=== PATIENT | female | born 1950 | race Caucasian/White ===

== ENCOUNTER 2016-12-22 09:43 | Emergency (ER) | payer MEDICARE, OTHER ==
[~2016-12-22] VITALS: Ht 160 cm; Wt 75.0 kg
[2016-12-22 09:47] VITALS: BP 147/79; PULSE 83; RESP 18; TEMP 97.8; O2SAT 96
[2016-12-22] MEDS ORDERED: PANT20 PO (10:05)
[2016-12-22] MEDS ORDERED: ZYRT10CA PO (10:05)
[2016-12-22] MEDS ORDERED: ASPI81TA11 PO (10:05)
[2016-12-22] MEDS ORDERED: CENTTAB8 PO (10:05)
--- NOTE | 2016-12-22 10:20 | PD ---
HPI Chief Complaint: Head Injury Time Seen by Provider: 10:03 Travel History International Travel<30 days: No Contact w/Intl Traveler<30days: No Traveled to known affect area: No History of Present Illness HPI Patient is a 66 year old female who presents to ER after fall today. Patient reports that she was playing pickleball today and reports that she zaida to hit a ball and tripped and fell backwards. Reports that her buttochs landed on cement and then her head landed on the cement floor. Denies any LOC. Denies vision changes. Denies n/v. Reports that she noticed that the back of her head appeared swollen and she became concerned. She does take a baby ASA daily - does not take any other anticoagulants. Denies pain to the back of her neck. Denies back pain. Denies chest pain/abdominal pain. No other c/o. PFSH Past Medical History Diminished Hearing: No ?: Not LMP: [place] Past Surgical History Mastectomy: Yes (LEFT) Social History Alcohol Use: Yes (1 GLASS OF WINE) Tobacco Use: No Substance Use: No Allergies-Medications (Allergen,Severity, Reaction): Coded Allergies: No Known Allergies (Unverified , 12/22/16) Reported Meds & Prescriptions Reported Meds & Active Scripts Active Reported Aspirin EC (Aspirin) 81 Mg Tabdr 81 Mg PO DAILY Centrum Adults (Multiple Vitamins W/ Minerals) 1 Tab 1 Tab PO DAILY Protonix (Pantoprazole Sodium) 20 Mg Tab 20 Mg PO DAILY Zyrtec Allergy (Cetirizine HCl) 10 Mg Cap 10 Mg PO DAILY Review of Systems General / Constitutional: No: Fever Eyes: No: Visual changes HENT: Positive: Headaches (pain and swelling to the back of head.) Cardiovascular: No: Chest Pain or Discomfort Respiratory: No: Shortness of Breath Gastrointestinal: No: Abdominal Pain Genitourinary: No: Dysuria Musculoskeletal: No: Pain Skin: No Rash Neurologic: No: Weakness Psychiatric: No: Depression Endocrine: No: Polydipsia Hematologic/Lymphatic: No: Easy Bruising Physical Exam Narrative GENERAL: No acute distress, nontoxic SKIN: Focused skin assessment warm/dry. HEAD: Atraumatic. Normocephalic. Patient with hematoma to the posterior occiput EYES: Pupils equal and round. No scleral icterus. No injection or drainage. ENT: No nasal bleeding or discharge. Mucous membranes pink and moist. NECK: Trachea midline. No JVD. Patient with no midline C-spine tenderness CARDIOVASCULAR: Regular rate and rhythm. No murmur appreciated. RESPIRATORY: No accessory muscle use. Clear to auscultation. Breath sounds equal bilaterally. GASTROINTESTINAL: Abdomen soft, non-tender, nondistended. Hepatic and splenic margins not palpable. MUSCULOSKELETAL: No obvious deformities. No clubbing. No cyanosis. No edema. Patient with no midline T or L-spine tenderness NEUROLOGICAL: Awake and alert. No obvious cranial nerve deficits. Motor grossly within normal limits. Normal speech. PSYCHIATRIC: Appropriate mood and affect; insight and judgment normal. Data Data Last Documented VS Vital Signs Date Time Temp Pulse Resp B/P Pulse Ox O2 Delivery O2 Flow Rate FiO2 12/22/16 09:47 97.8 83 18 147/[address] Brain W/O Iv Contrast(Rout) (12/22/16 10:03) [facility] Medical Decision Making Medical Screen Exam Complete: Yes Emergency Medical Condition: Yes Interpretation(s) Vital Signs Date Time Temp Pulse Resp B/P Pulse Ox O2 Delivery O2 Flow Rate FiO2 12/22/16 09:47 97.8 83 18 147/79 96 Differential Diagnosis Scalp hematoma, intracranial hemorrhage, concussion Narrative Course 66-year-old female who presents to emergency room after she fell backwards and hit her head playing pickle ball. Patient with no loss of consciousness, reports pain to the back of her head where it is swollen. Denies any vision change or dizziness. Patient does take a baby aspirin per day. Patient overall nontoxic on evaluation, cranial nerves 2- 12 grossly intact with no neurological deficits. Will obtain CT of the head to evaluate for any intercranial pathology Last Impressions Head CT 12/22/16 1003 Signed Impressions: Service Date/Time: Thursday, December 22, 2016 10:07 - CONCLUSION: Scalp hematoma, atrophic and small vessel ischemic changes without any evidence for acute hemorrhage or mass effect. Cornelius Weems MD Patient with no complaints while in the emergency room. I reviewed CT report with patient in detail. Signs and symptoms of when to return to the emergency room was reviewed with patient. Patient will return to emergency room should she develop any of the symptoms. Patient will follow-up with primary care doctor and will return to emergency room as needed. Diagnosis Primary Impression: Scalp hematoma Qualified Code: S00.03XA - Scalp hematoma, initial encounter Additional Impression: Closed head injury Qualified Code: S09.90XA - Closed head injury, initial encounter Patient Instructions: General Instructions Additional Instructions: Please return to the emergency room as needed Follow-up with your primary care doctor in 2-3 days Please take ibuprofen or Tylenol for pain Apply ice to your scalp wound Disposition: 01 DISCHARGE HOME Condition: Stable Nahomi Chris DO Dec 22, 2016 10:20
--- NOTE | 2016-12-22 10:26 | RADHPO ---
EXAM DATE/TIME: 12/22/2016 10:07 [facility] COMPARISON: No previous studies available for comparison. INDICATIONS : Trauma. Tripped and fell and hit back of head on concrete pickleball court. RADIATION DOSE: 61.53 CTDIvol (mGy) MEDICAL HISTORY : None SURGICAL HISTORY : None. ENCOUNTER: Initial ACUITY: 1 day PAIN SCALE: 8/10 LOCATION: cranial TECHNIQUE: Multiple contiguous axial images were obtained of the head. Using automated exposure control and adj ustment of the mA and/or kV according to patient size, radiation dose was kept as low as reasonably a chievable to obtain optimal diagnostic quality images. FINDINGS: There is no evidence for intracranial hemorrhage, mass effect, mass lesions, or edema. The visualize d bony structures appear intact. Slight degree of brain atrophy is seen. Slight periventricular whit e matter changes are seen nonspecific mostly consistent with chronic small vessel ischemic changes an d there is one focal area in the right peritrigonal white matter lucency also probably chronic. Ther e are no signs of acute infarction for technique. Scalp hematoma is seen in the right high convexity posterior parietal lobe. CONCLUSION: Scalp hematoma, atrophic and small vessel ischemic changes without any evidence for acute hemorrhage or mass effect. Cornelius Weems MD on December 22, 2016 at 10:22 Board Certified Radiologist. This report was verified electronically.
== END 2016-12-22 10:50 | disposition home or self-care (01) ==
LOC: PHED 09:43
DX: S00.03XA Contusion of scalp, initial encounter (principal); S09.90XA Unspecified injury of head, initial encounter; M54.2 Cervicalgia; Z79.82 Long term (current) use of aspirin; W18.39XA Other fall on same level, initial encounter; Y93.73 Activity, racquet and hand sports
CPT/HCPCS: 70450